=== PATIENT | male | born 1990 | race American Indian/Alaskan Native ===

== ENCOUNTER 2022-03-16 10:42 | Emergency (ER) | payer SELFPAY ==
[2022-03-16] MEDS ORDERED: predniSONE 20 MG TAB PO ONE (12:44)
[2022-03-16] MEDS ORDERED: CYCLOBENZAPRINE 10 MG TAB PO ONE (12:44)
[2022-03-16] MEDS ORDERED: KETOROLAC 10 MG TAB PO ONE (12:44)
[2022-03-16] MEDS ORDERED: oxyCODONE /ACETAMINOPHEN 5-325MG TAB PO ONE (12:45)
--- NOTE | 2022-03-16 13:15 | XRay Report ---
RIGHT RIBS 5 VIEWS INDICATION / CLINICAL INFORMATION: fall rib pain. COMPARISON: None available. FINDINGS: RIBS: No acute, displaced fracture or other acute abnormality. LUNGS: Moderate right pleural effusion. No pneumothorax. Signer Name: Julio Edward MD Signed: 03/16/2022 1:11 PM Workstation Name: [id number]
--- NOTE | 2022-03-16 14:02 | Emergency Department Report ---
ED Fall HPI - General Chief Complaint: Dyspnea/Respdistress Stated Complaint: SIDE PAIN/VOMITING BLOOD X 6 DAYS Time Seen by Provider: 03/16/22 12:17 Source: patient Mode of arrival: Ambulatory - History of Present Illness Initial Comments: 31-year-old black male with no past medical history presents to the emergency department for evaluation of right rib pain. He states that about 6 days ago he fell and hit his right side on the tub, and since then he has had increasing right rib pain with intermittent shortness of breath. He states that he also coughed up blood 1 or 2 times. He states that pain is worse with movement and inspiration and has been unrelieved by Tylenol. He states that pain is 10 out of 10 and he denies chest pain, fever. MD Complaint: fall -: Sudden, days(s) (6) Fall From: standing When Fall Occurred: # days [facility] (6) Fall Witnessed: no Place Fall Occurred: home Loss of Consciousness: none Prolonged Down Time?: no Symptoms Prior to Fall: none Location: chest (Right rib area) Severity: severe Severity scale (0 -10): 10 Quality: aching Context: tripped/slipped Associated Symptoms: shortness of breath. denies: headache, neck pain, numbness, weakness, chest paint, abdominal pain, hematuria, unable to walk, lightheaded, vertigo, confusion - Related Data Previous Rx's Medication Instructions Recorded Last Taken Type Acetaminophen/Codeine [Tylenol 1 tab PO Q6H PRN #30 tab 03/16/22 Unknown Rx /Codeine # 3 tab] Amoxicillin [Amoxicillin TAB] 875 mg PO BID #14 tab 03/16/22 Unknown Rx Cyclobenzaprine [Flexeril] 10 mg PO TID PRN #30 tab 03/16/22 Unknown Rx Naproxen [Naprosyn] 500 mg PO BID #14 tab 03/16/22 Unknown Rx Allergies Allergy/AdvReac Type Severity Reaction Status Date / Time No Known Allergies Allergy Verified 03/16/22 11:09 ED Review of Systems ROS: Stated complaint: SIDE PAIN/VOMITING BLOOD X 6 DAYS Other details as noted in HPI Comment: All other systems reviewed and negative Constitutional: denies: chills, diaphoresis, fever Eyes: denies: eye pain Respiratory: shortness of breath. denies: cough, orthopnea, SOB with exertion, SOB at rest, stridor, wheezing Cardiovascular: denies: chest pain, palpitations, dyspnea on exertion, orthopnea, edema, syncope, paroxysmal nocturnal dyspnea Gastrointestinal: denies: abdominal pain, nausea, vomiting Genitourinary: denies: urgency, dysuria Musculoskeletal: denies: back pain Neurological: denies: headache, weakness ED Past Medical Hx - Medications Home Medications: Home Medications Medication Instructions Recorded Confirmed Last Taken Type Acetaminophen/Codeine [Tylenol 1 tab PO Q6H PRN #30 tab 03/16/22 Unknown Rx /Codeine # 3 tab] Amoxicillin [Amoxicillin TAB] 875 mg PO BID #14 tab 03/16/22 Unknown Rx Cyclobenzaprine [Flexeril] 10 mg PO TID PRN #30 tab 03/16/22 Unknown Rx Naproxen [Naprosyn] 500 mg PO BID #14 tab 03/16/22 Unknown Rx ED Physical Exam - General Limitations: No Limitations General appearance: alert, in no apparent distress - Head Head exam: Present: atraumatic, normocephalic - Eye Eye exam: Present: normal appearance. Absent: conjunctival injection - Neck Neck exam: Present: normal inspection. Absent: tenderness - Respiratory Respiratory exam: Present: chest wall tenderness (Right side only), decreased breath sounds (Right only). Absent: respiratory distress, wheezes, rales, rhonchi, stridor, accessory muscle use - Cardiovascular Cardiovascular Exam: Present: tachycardia, normal heart sounds - GI/Abdominal GI/Abdominal exam: Present: soft, normal bowel sounds. Absent: distended, tenderness, guarding, rebound, rigid - Extremities Exam Extremities exam: Present: normal inspection, normal capillary refill. Absent: pedal edema, joint swelling, calf tenderness - Back Exam Back exam: Present: normal inspection. Absent: CVA tenderness (R), CVA tenderness (L), vertebral tenderness - Neurological Exam Neurological exam: Present: alert, oriented X3, normal gait - Psychiatric Psychiatric exam: Present: normal affect, normal mood - Skin Skin exam: Present: warm, dry, intact, normal color ED Course Vital Signs 03/16/22 03/16/22 11:07 13:51 Temperature 99 F Pulse Rate 117 H 109 H Respiratory 20 17 Rate Blood Pressure 130/79 125/85 [Right] O2 Sat by Pulse 94 99 Oximetry ED Medical Decision Making - Radiology Data Radiology results: report reviewed, image reviewed Right rib x-ray with PA chest: FINDINGS: RIBS: No acute, displaced fracture or other acute abnormality. LUNGS: Moderate right pleural effusion. No pneumothorax. - Medical Decision Making 31-year-old black male with no past medical history presents to the emergency department for evaluation of right rib pain. He states that about 6 days ago he fell and hit his right side on the tub, and since then he has had increasing right rib pain with intermittent shortness of breath. He states that he also coughed up blood 1 or 2 times. He states that pain is worse with movement and inspiration and has been unrelieved by Tylenol. He states that pain is 10 out of 10 and he denies chest pain, fever. Right rib x-ray with PA chest noted to be positive for moderate pleural effusion but no rib fracture or pneumothorax noted. Patient with tenderness to right rib on exam, but patient able to speak with complete sentence sentences, ambulate around the room without any shortness of breath, and pulse ox 99%. Patient essentially asymptomatic with moderate pleural effusion which is likely secondary to trauma, so patient will be treated with 7-day course of anti- inflammatories. Patient noted to have a low-grade fever and tachycardia, so patient will be treated with 7-day course of amoxicillin to prevent development of pneumonia. He was instructed to make a conscious effort to take deep breaths during the course of his day. Patient also be discharged home with pain medication and advised to follow-up with primary care provider or pulmonary doctor if no improvement or worsening symptoms. He was given strict return precautions if he develops worsening fever, shortness of breath, dyspnea on exertion, or any concerning symptoms to return to the emergency department immediately. He verbalized understanding of and agreement with plan of care. Critical care attestation.: If time is entered above; I have spent that time in minutes in the direct care of this critically ill patient, excluding procedure time. ED Disposition Clinical Impression: Rib pain on right side, Pleural effusion Fall Qualifiers: Encounter type: initial encounter Qualified Code(s): W19.XXXA - Unspecified fall, initial encounter Disposition: HOME / SELF CARE / HOMELESS Is pt being admited?: No Does the pt Need Aspirin: No Condition: Stable Instructions: Chest Wall Pain, [id number], Pleural Effusion, Rib Contusion Additional Instructions: Take medications as prescribed. Follow-up with lung doctor or your primary care provider if no improvement or worsening symptoms. Return to the emergency department as needed. Prescriptions: Amoxicillin [Amoxicillin TAB] 875 mg PO BID #14 tab Cyclobenzaprine [Flexeril] 10 mg PO TID PRN #30 tab PRN Reason: Muscle Spasm Naproxen [Naprosyn] 500 mg PO BID #14 tab Acetaminophen/Codeine [Tylenol /Codeine # 3 tab] 1 tab PO Q6H PRN #30 tab PRN Reason: Pain , Severe (7-10) Referrals: PARISH GOMEZ MD [Staff Physician] - 3-5 Days FRANK PA MD [Primary Care Provider] - 3-5 Days Forms: Work/School Release Form(ED) Time of Disposition: 14:06
[2022-03-16 15:31] VITALS: BP 138/87
== END 2022-03-16 15:31 | disposition home or self-care (01) ==
LOC: ED 10:42
DX: J90 Pleural effusion, not elsewhere classified (principal); R07.81 Pleurodynia; Z79.899 Other long term (current) drug therapy; W19.XXXA Unspecified fall, initial encounter; Y93.89 Activity, other specified; Y92.89 Other specified places as the place of occurrence of the external cause; Y99.8 Other external cause status
CPT/HCPCS: 99283